=== PATIENT | female | born 1990 | race African-American/Black ===

== ENCOUNTER 2020-11-08 16:18 | Emergency (ER) | payer SELFPAY ==
[~2020-11-08] VITALS: Ht 167.6 cm; Wt 154.8 kg
== END 2020-11-08 18:15 | disposition home or self-care (01) ==
LOC: FSED 16:47
DX: M25.561 Pain in right knee (principal); S83.91XA Sprain of unspecified site of right knee, initial encounter; F17.210 Nicotine dependence, cigarettes, uncomplicated
CPT/HCPCS: 99282